=== PATIENT | female | born 1980 | race Caucasian/White ===

== ENCOUNTER 2016-09-16 16:00 | Observation (INO) ==
[2016-09-16] MEDS ORDERED: Ipratropium/Albuterol Neb 3 ML IH ONE (16:25)
--- NOTE | 2016-09-16 16:28 | Emergency Department Note ---
Disposition Clinical Impression: Influenza, Pneumonia Disposition: Admitted As Inpatient Condition: Fair Referrals: Brittni Hodges, SET UP INSPECTOR [Primary Care Provider] - Forms: ED Satisfaction Letter Time of Disposition: 19:04 ([facility]) URI/Sore Throat HPI - General Chief Complaint: ED Upper Respiratory Infection Stated Complaint: COUGH, FEVER, CHILLS, SHAKINESS Time Seen by Provider: 09/16/16 16:01 Source: EMS Mode of arrival: ambulatory Limitations: no limitations Nursing Notes Reviewed: Yes Vital Signs Reviewed: Yes - History of Present Illness HPI Narrative: 6-year-old female has single episode at home she was walking about her house when she went to the back mass which came back out towards the front of the house he had a collapsed she has been short of breath; cough congestion fever chills she denies any neck pain neck stiffness denies any numbness tingling weakness or loss sensation legs denies loss of bowel or bladder control denies any burning or urgency stain patient states that she just does not feel well she thinks she may have the flu Pt Subjective Complaint: fever, cough, flu symptoms, nasal congestion Onset (ago): day(s) (3-4) Duration: constant, gradually worsening Severity: moderate Severity scale (1-10): 5 Improves with: nothing Worsens with: exertion If sputum, description: yellow Context: sick contacts Associated symptoms: Reports: fever, chills, myalgias, diaphoresis, headache, nasal congestion, cough, chest pain, shortness of breath. Denies: voice changes , rhinorrhea, sore throat, stiff neck, abdominal pain, nausea, vomiting, diarrhea, dysuria, rash, ear pain Treatments prior to arrival: acetaminophen, ibuprofen - Related Data Home Medications Medication Instructions Recorded Confirmed Albuterol Sulfate [Albuterol 2 puff IH Q4-6H PRN 07/23/15 06/23/16 Inhaler] Budesonide/Formoterol 160/4.5 2 puff IH BID 07/23/15 06/23/16 [Symbicort 160/4.5] Levothyroxine [Synthroid] 100 mcg PO DAILY 07/23/15 06/23/16 Omeprazole [PriLOSEC] 40 mg PO DAILY 07/23/15 06/23/16 Topiramate [Topamax] 50 mg PO DAILY 07/23/15 06/23/16 Venlafaxine XR (24 HR) [Effexor XR] 225 mg PO DAILY 07/23/15 06/23/16 Cetirizine HCl [All Day Allergy] 10 mg PO DAILY PRN 06/23/16 06/23/16 FLUoxetine HCl [PROzac] 20 mg PO DAILY 06/23/16 06/23/16 Hydrochlorothiazide 25 mg PO DAILY 06/23/16 06/23/16 LORazepam [Ativan] 0.5 mg PO BID PRN 06/23/16 06/23/16 Lisinopril [Zestril] 20 mg PO DAILY 06/23/16 06/23/16 Metoprolol XL (24 HR) Succ [Toprol 25 mg PO DAILY 06/23/16 06/23/16 XL] Previous Rx's Medication Instructions Recorded Ibuprofen [Motrin] 800 mg PO TID #15 tablet 07/23/15 Allergies Allergy/AdvReac Type Severity Reaction Status Date / Time diphenhydramine Allergy Hives Verified 06/23/16 08:40 [From Benadryl] mold Allergy Hives Verified 06/23/16 08:40 All systems ED: reviewed and negative except as stated. Constitutional: Reports: fever, chills, weakness Eyes: Denies: eye pain ENT ED: Reports: throat pain, congestion Cardiovascular: Reports: chest pain, dyspnea on exertion. Denies: palpitations Respiratory: Reports: cough, dyspnea, wheezes, sputum production Gastrointestinal: Denies: abdominal pain, nausea, vomiting Genitourinary: Denies: urgency, dysuria, frequency Musculoskeletal: Denies: back pain, neck pain Integumentary: Denies: rash, abrasion Neurological: Denies: headache Psychiatric: Denies: anxiety Endocrine: Denies: fatigue Hematological/Lymphatic: Denies: easy bleeding Allergic/Immunologic: Denies: facial swelling URI PMH - Past Medical History Medical history: Reports: diabetes, hyperlipidemia, hypertension, thyroid disease Surgical history: Reports: cholecystectomy Psychiatric history: Reports: anxiety, depression PRESS SET UP history: Reports: no PRESS SET UP history - Social History Smoking Status: Unknown if ever smoked Alcohol use: Reports: none Drug use: Reports: none Physical Exam - General Limitations: no limitations General appearance: alert, in no apparent distress, anxious, obese - Head Head exam: atraumatic, normocephalic, normal inspection - Eye Eye exam: Present: normal appearance, PERRL, EOMI - ENT ENT exam: normal exam, normal oropharynx, mucous membranes moist, normal external ear exam - Neck Neck exam: Present: normal inspection, full ROM, trachea midline - Chest Chest inspection: Present: normal inspection, symmetric chest wall rise - Respiratory Respiratory exam: Present: wheezes, accessory muscle use, prolonged expiratory phase, other (desat with activity) - Cardiovascular Cardiovascular exam: Present: regular rate, normal rhythm, normal heart sounds - Abdominal Exam Abdominal exam: Present: soft, Non-Tender, normal bowel sounds. Absent: mass, pulsatile mass - Extremities Exam Extremities exam: Present: normal inspection, full ROM, normal capillary refill. Absent: tenderness, joint swelling - Expanded Lower Extremity Exam Gait: observed and normal - Back Exam Back exam: Present: normal inspection, full ROM. Absent: muscle spasm - Neurological Exam Neurological exam: Present: alert, oriented X3, CN II-XII intact - Psychiatric Psychiatric exam: Present: normal affect, normal mood - Skin Skin exam: Present: warm, dry, intact, normal color Course Course Narrative: Patient seen and examined labs including influenza chest x-ray were obtained with possibly influenza we started her on Tamiflu given IV after reviewing the chest x-ray with the radiologist says congestive heart failure appears to be more consistent with pneumonia my concern would be that of ours patient is having some desaturation we get her some Lasix she will be admitted transferred to [facility] for further management Vital Signs Temperature 103.9 F H 09/16/16 16:01 Pulse Rate 113 09/16/16 16:01 Respiratory Rate 30 09/16/16 16:01 Blood Pressure 144/74 09/16/16 16:01 O2 Sat by Pulse Oximetry 90 L 09/16/16 16:01 Temperature 100.7 F H 09/16/16 17:04 Pulse Rate 103 09/16/16 18:27 Respiratory Rate 20 09/16/16 18:27 Blood Pressure 159/73 09/16/16 18:27 O2 Sat by Pulse Oximetry 93 L 09/16/16 18:27 Oxygen Delivery Oxygen Delivery Nasal Cannula Upper Respiratory Infection - Differential Diagnosis Differential Diagnosis: Likely: upper respiratory infection, bronchitis, influenza, pneumonia - Medical Records Medical records reviewed: Yes I reviewed the patient's medical records. - Lab Data Lab results reviewed: Yes I reviewed the patient's lab results. Result diagrams: 09/16/16 18:24 09/16/16 18:24 Lab Results 09/16/16 09/16/16 09/16/16 Range/Units 18:24 18:24 18:24 WBC 5.4 (4.3-11.1) K/mcL RBC 3.68 L (3.82-4.97) M/mcL Hgb 10.9 L (11.5-15.4) g/dL Hct 33.1 L (35.3-44.9) % MCV 89.9 (83.0-100.0) fL MCH 29.6 (28.0-33.3) pg MCHC 32.9 (31.6-35.5) g/dL RDW 16.5 H (11.5-14.5) % Plt Count 139 L (140-400) K/mcL MPV 10.7 (9.4-12.4) fL Immature Gran % 0.6 (0-4) % Seg Neutrophils % 85.6 % Lymphocytes % 9.7 % Monocytes % 3.5 % Eosinophils % 0.4 % Basophils % 0.2 % Neutrophils # 4.6 (1.6-8.9) K/mcL Lymphocytes # 0.5 L (0.6-4.6) K/mcL Monocytes # 0.2 (0.0-1.3) K/mcL Eosinophils # 0.0 (0.0-0.6) K/mcL Basophils # 0.0 (0.0-0.2) K/mcL PT 13.2 H (9.4-12.1) Seconds INR 1.2 APTT 27.1 (26.0-36.0) Seconds Sodium 140 (136-145) mEq/L Potassium 3.8 (3.5-4.5) mEq/L Chloride 105 (98-109) mEq/L Carbon Dioxide 20 (19-29) mEq/L BUN 11 (7-20) mg/dL Creatinine 1.15 H (0.57-1.11) mg/dL Est GFR ( Amer) > 60 (> 60) Est GFR (Non-Af Amer) 53 L (> 60) BUN/Creatinine Ratio 10 (6-26) Glucose 258 H (70-99) mg/dL Calculated Osmolality 298 (280-300) Calcium 8.0 L (8.6-10.8) mg/dL B-Natriuretic Peptide (0-100) pg/mL 09/16/16 Range/Units 18:24 WBC (4.3-11.1) K/mcL RBC (3.82-4.97) M/mcL Hgb (11.5-15.4) g/dL Hct (35.3-44.9) % MCV (83.0-100.0) fL MCH (28.0-33.3) pg MCHC (31.6-35.5) g/dL RDW (11.5-14.5) % Plt Count (140-400) K/mcL MPV (9.4-12.4) fL Immature Gran % (0-4) % Seg Neutrophils % % Lymphocytes % % Monocytes % % Eosinophils % % Basophils % % Neutrophils # (1.6-8.9) K/mcL Lymphocytes # (0.6-4.6) K/mcL Monocytes # (0.0-1.3) K/mcL Eosinophils # (0.0-0.6) K/mcL Basophils # (0.0-0.2) K/mcL PT (9.4-12.1) Seconds INR APTT (26.0-36.0) Seconds Sodium (136-145) mEq/L Potassium (3.5-4.5) mEq/L Chloride (98-109) mEq/L Carbon Dioxide (19-29) mEq/L BUN (7-20) mg/dL Creatinine (0.57-1.11) mg/dL Est GFR ( Amer) (> 60) Est GFR (Non-Af Amer) (> 60) BUN/Creatinine Ratio (6-26) Glucose (70-99) mg/dL Calculated Osmolality (280-300) Calcium (8.6-10.8) mg/dL B-Natriuretic Peptide 33 (0-100) pg/mL - Radiology Data Radiology results reviewed: Yes I reviewed the patient's radiology results. ITS Impressions Chest X-Ray 09/16/16 16:25 IMPRESSION: Mild pulmonary vascular congestion. D/ / Rogers Blank MD / Rogers Blank MD Interpreting Provider: Rogers Blank MD Critical Care Time Critical Care Time: No
[2016-09-16] MEDS ORDERED: Azithromycin 500 MG in D5% in Water 250 ML IVPB ONE (17:23)
[2016-09-16] MEDS ORDERED: CefTRIAXone 1,000 MG in D5% in Water (Mini-Bag+) 100 ML IVPB ONE (17:23)
[2016-09-16] MEDS ORDERED: 0.9 % Sodium Chloride 1,000 ML IVC ONE (17:23)
[2016-09-16 18:34] LABS: Basophils % 0.2 %; Eosinophils % 0.4 %; Hematocrit 33.1 % (35.3-44.9); Hemoglobin 10.9 g/dL (11.5-15.4); Immature Granulocytes % 0.6 % (0-4); Lymphocytes # 0.5 K/mcL (0.6-4.6); Lymphocytes % 9.7 %; Mean Corpuscular HGB Conc 32.9 g/dL (31.6-35.5); Mean Corpuscular Hemoglobin 29.6 pg (28.0-33.3); Mean Corpuscular Volume 89.9 fL (83.0-100.0); Mean Platelet Volume 10.7 fL (9.4-12.4); Monocytes # 0.2 K/mcL (0.0-1.3); Monocytes % 3.5 %; Neutrophils # 4.6 K/mcL (1.6-8.9); Platelet Count 139 K/mcL (140-400); Red Blood Count 3.68 M/mcL (3.82-4.97); Red Cell Distribution Width 16.5 % (11.5-14.5); Segmented Neutrophils % 85.6 %
[2016-09-16] MEDS ORDERED: Bumetanide 1 MG/4 ML VIAL IVP ONE (18:39)
[2016-09-16 18:41] LABS: INR 1.2; Prothrombin Time 13.2 Seconds (9.4-12.1)
[2016-09-16 18:44] LABS: Activated Partial Thrombo Time 27.1 Seconds (26.0-36.0)
[2016-09-16 18:48] LABS: BUN/Creatinine Ratio 10 (6-26); Blood Urea Nitrogen 11 mg/dL (7-20); Carbon Dioxide 20 mEq/L (19-29); Chloride 105 mEq/L (98-109); Glucose 258 mg/dL (70-99); Osmolality,Calculated 298 (280-300); Potassium 3.8 mEq/L (3.5-4.5); Sodium 140 mEq/L (136-145); eGFR For African Americans > 60 (> 60); eGFR For Non-African Americans 53 (> 60)
[2016-09-16] MEDS ORDERED: Ondansetron 4 MG/2 ML VIAL IVP PRN (21:56)
[2016-09-16] MEDS ORDERED: Loratadine 10 MG TABLET PO PRN (21:56)
[2016-09-16] MEDS ORDERED: CefTRIAXone 1,000 MG in D5% in Water (Mini-Bag+) 100 ML IVPB SCH (21:56)
[2016-09-16] MEDS ORDERED: Azithromycin 500 MG in D5% in Water 250 ML IVPB SCH (21:56)
[2016-09-16] MEDS ORDERED: Acetaminophen 325 MG TABLET PO PRN (21:56)
[2016-09-16] MEDS ORDERED: *HR* LORazepam 0.5 MG TABLET PO PRN (21:56)
[2016-09-16] MEDS ORDERED: Naloxone 0.4 MG/ML INJ IVP PRN (21:56)
[2016-09-16] MEDS ORDERED: Ibuprofen 400 MG TABLET PO PRN (21:56)
[2016-09-16] MEDS ORDERED: 0.9 % Sodium Chloride 1,000 ML IVC SCH (21:56)
[2016-09-17] MEDS ORDERED: Dextrose Gel 15 GM PO PRN ×2 (00:12)
[2016-09-17] MEDS ORDERED: *HR* Dextrose 50 % in Water (Syg) 50 ML SYRINGE IVP PRN (00:12)
[2016-09-17] MEDS ORDERED: D5% in Water 1,000 ML IV PRN (00:12)
[2016-09-17] MEDS: Ibuprofen 800 MG TABLET PO SCH ×2 (01:15→10:06)
[2016-09-17 06:44] LABS: Hematocrit 30.5 % (35.3-44.9); Immature Granulocytes % 0.6 % (0-4); Lymphocytes # 0.4 K/mcL (0.6-4.6); Lymphocytes % 12.3 %; Mean Corpuscular HGB Conc 32.8 g/dL (31.6-35.5); Mean Corpuscular Hemoglobin 29.3 pg (28.0-33.3); Mean Corpuscular Volume 89.4 fL (83.0-100.0); Mean Platelet Volume 10.4 fL (9.4-12.4); Monocytes # 0.1 K/mcL (0.0-1.3); Monocytes % 4.3 %; Neutrophils # 2.7 K/mcL (1.6-8.9); Platelet Count 123 K/mcL (140-400); Red Blood Count 3.41 M/mcL (3.82-4.97); Red Cell Distribution Width 16.5 % (11.5-14.5); Segmented Neutrophils % 82.8 %
[2016-09-17 06:50] LABS: INR 1.2; Prothrombin Time 12.6 Seconds (9.4-12.1)
[2016-09-17 06:53] LABS: Activated Partial Thrombo Time 25.5 Seconds (26.0-36.0)
[2016-09-17 07:01] LABS: Calcium 7.9 mg/dL (8.6-10.8); Potassium 3.9 mEq/L (3.5-4.5)
[2016-09-17] MEDS ORDERED: Metoprolol XL (24 HR) Succ 25 MG TAB.ER.24H PO SCH (09:00)
[2016-09-17] MEDS ORDERED: Topiramate 25 MG TABLET PO SCH (09:00)
[2016-09-17] MEDS ORDERED: Venlafaxine XR (24 HR) 75 MG CAP.ER.24H PO SCH (09:00)
[2016-09-17] MEDS ORDERED: Venlafaxine XR (24 HR) 37.5 MG CAP.ER.24H PO SCH (09:00)
[2016-09-17] MEDS ORDERED: Lisinopril 20 MG TABLET PO SCH (09:00)
[2016-09-17] MEDS ORDERED: FLUoxetine 20 MG CAPSULE PO SCH (09:00)
[2016-09-17] MEDS ORDERED: Budesonide/Formoterol 160/4.5 MDI IH SCH (10:00)
[2016-09-17] MEDS: Insulin LISPRO 300 UNITS/3 ML VIAL SQ SCH ×2 (10:05→12:48)
[2016-09-17 11:46] VITALS: BP 140/52
--- NOTE | 2016-09-17 12:06 | Internal Med History&Physical ---
Date of Encounter: 09/17/16 Time of Encounter: 11:30 Assessment and Plan (1) Influenza Current visit: Yes Status: Acute She has been started on Tamiflu. (2) Syncope Current visit: Yes Status: Acute Orthostatic vital signs will be checked prior to discharge. Qualifiers: Syncope type: unspecified Qualified Code(s): R55 - Syncope and collapse (3) Hypertension Current visit: Yes Status: Chronic Continue hydrochlorothiazide, Zestril, and metoprolol XL. Qualifiers: Hypertension type: essential hypertension Qualified Code(s): I10 - Essential (primary) hypertension (4) CKD (chronic kidney disease) stage 3, GFR 30-59 ml/min Current visit: Yes Status: Chronic (5) DM2 (diabetes mellitus, type 2) Current visit: Yes Status: Acute Hemoglobin A1c was acceptable at 6.0% on 06/22/2016. Accu-Cheks will be done with SSI Qualifiers: Diabetes mellitus complication status: with kidney complications Diabetes mellitus complication detail: with chronic kidney disease Diabetes mellitus rn long term care insulin use: without rn long term care use Chronic kidney disease stage: stage 3 (moderate) Qualified Code(s): E11.22 - Type 2 diabetes mellitus with diabetic chronic kidney disease; N18.3 - Chronic kidney disease, stage 3 ( moderate) (6) Anemia Current visit: Yes Status: Acute Qualifiers: Anemia type: unspecified type Qualified Code(s): D64.9 - Anemia, unspecified Internal Medicine - H&P: HPI Chief complaint: Cough and fever Admitted From: Home Plans for Post Hospital Care: Home History of present illness: Ms. Brand is a 36 year old female who came to emergency room stating she had onset of fatigue and cough approximately 1 week ago. It worsened in the 3 days preceding hospitalization. She had fevers chills loss of appetite and nausea but no vomiting or diarrhea. She reports she had a very brief syncopal episode lasting only a few seconds while ambulating in her house. She fell to the floor without injury. She regained consciousness and called 911. She was evaluated in emergency room and found to have influenza A and was admitted to [facility] for ongoing care needs. She states she feels improved now and has ambulated in the hospital room without any further syncopal or near syncopal episodes. Her respiratory history is significant for being a lifelong nonsmoker. She has a diagnosis of asthma but no other chronic lung disease. She was told in the past she had " air trapping". Past Med Surg Social Fam HX - Past Medical History Medical history: asthma, diabetes, hypertension, thyroid disease Psychiatric history: anxiety, depression - Past Surgical History Surgical History: cholecystectomy - Social History Smoking Status: Never smoker Smokeless Tobacco Status: No Alcohol use: none Drug use: none - Family History Mother Adopted: No Family Member Ethnicity: Non- Living Status: Still Living Hx Family Cardiac Disorders: Yes (hypertension) Hx Family Respiratory Disorders: No Hx Family Cancer: No Hx Family GI Disorders: No Hx Family Endocrine Disorder: No Hx Family Neuromuscular Disorders: No Hx Family Neurologic Disorders: Yes (Epilepsy) Hx Family HEENT Disorders: No Hx Family Autoimmune Disorders: No Father Age: 60 Family Member Ethnicity: Non- Living Status: Still Living Hx Family Cardiac Disorders: No Hx Family Respiratory Disorders: No Hx Family Cancer: No Hx Family GI Disorders: No Hx Family Endocrine Disorder: No Hx Family Neuromuscular Disorders: No Hx Family Neurologic Disorders: No Hx Family HEENT Disorders: No Hx Family Autoimmune Disorders: No Internal Medicine - H&P: Meds Albuterol Sulfate [Albuterol Inhaler] 2 puff IH Q4-6H PRN 07/23/15 [History] Budesonide/Formoterol 160/4.5 [Symbicort 160/4.5] 2 puff IH BID 07/23/15 [ History] Ibuprofen [Motrin] 800 mg PO TID #15 tablet 07/23/15 [Rx] Levothyroxine [Synthroid] 100 mcg PO DAILY 07/23/15 [History] Omeprazole [PriLOSEC] 40 mg PO DAILY 07/23/15 [History] Topiramate [Topamax] 50 mg PO DAILY 07/23/15 [History] Venlafaxine XR (24 HR) [Effexor XR] 225 mg PO DAILY 07/23/15 [History] Cetirizine HCl [All Day Allergy] 10 mg PO DAILY PRN 06/23/16 [History] FLUoxetine HCl [PROzac] 20 mg PO DAILY 06/23/16 [History] Hydrochlorothiazide 25 mg PO DAILY 06/23/16 [History] LORazepam [Ativan] 0.5 mg PO BID PRN 06/23/16 [History] Lisinopril [Zestril] 20 mg PO DAILY 06/23/16 [History] Metoprolol XL (24 HR) Succ [Toprol XL] 25 mg PO DAILY 06/23/16 [History] Allergies diphenhydramine [From Benadryl] Allergy (Verified 06/23/16 08:40) Hives mold Allergy (Verified 06/23/16 08:40) Hives clindamycin Adverse Reaction (Severe, Verified 09/17/16 02:47) Redness of Skin Red Man Syndrome per patient vancomycin Adverse Reaction (Severe, Verified 09/17/16 02:47) Redness of Skin Red Man Syndrom per patient All Systems PM: A 10-system review of systems was performed and is negative for pertinent findings except as documented above in the HPI. Review of systems: Gen.: Her weight has been stable at approximately 175 kg since the May 2014 hospitalization Cardiovascular: She has history of hypertension but denies VA heart failure DVT or pulmonary embolus. She reports an EST done in 2012 which was negative. Respiratory: As per history of present illness GI: She has had cholecystectomy. She has NAFLD but denies other disorders of her liver or exocrine pancreas : She has CKD stage III but does not follow with a gravity meter observer Neurologic: She denies large distribution strokes or seizures. Endocrine: She has been diagnosed with DM 2 but reports it has been diet- controlled. Hemoglobin A1c done 06/22/2016 was acceptable at 6.0%. She has hypothyroidism. She has hyperlipidemia but is not receiving treatment. Lipid profile done June 2016 showed triglycerides 443 and cholesterol 259. Hematology/oncology: She denies blood disorders or cancers. Her emergency room lab work showed mild anemia. Psychiatric: She has anxiety and depression but denies others mental health disorders Musk skeletal: She has mild DJD but no known gout or osteoporosis or bone joint or muscle disorders. - Constitutional Vitals: Temp Pulse Resp BP Pulse Ox 97.7 F 81 38 140/52 93 L 09/17/16 11:42 09/17/16 11:42 09/17/16 11:42 09/17/16 11:42 09/17/16 11:42 Exam: Gen.: She is a well-developed obese female who appears in no severe distress at present time HEENT: Head is atraumatic and normocephalic. Eyes: EOMI. There is no scleral icterus. Mouth: Mucosa is moist. Neck: Supple and nontender. There is no thyromegaly or adenopathy noted. Heart: Regular without murmurs gallops or ectopics Lungs: No wheezes crackles are heard Abdomen: Soft and nontender. No masses or guarding are noted. Extremities: There is no cyanosis edema or clubbing noted. Dorsalis pedis and posttibial pulses are trace palpable bilaterally. Her feet are warm to touch. Neurologic: Mental status: She is talkative and a good historian. Cranial nerves: Smile is symmetric. Forehead wrinkles bilaterally. Tongue protrudes midline. EOMI. Motor: There is no pronator drift. Cerebellar: Finger to nose intact bilaterally. Skin: Warm and dry Internal Med - H&P Results - Labs CBC & Chem 7: 09/17/16 06:21 09/17/16 06:21 Labs: Short CBC 09/17/16 Range/Units 06:21 WBC 3.3 L (4.3-11.1) K/mcL Hgb 10.0 L (11.5-15.4) g/dL Hct 30.5 L (35.3-44.9) % Plt Count 123 L (140-400) K/mcL Neutrophils # 2.7 (1.6-8.9) K/mcL BMP 09/17/16 06:21 Sodium 139 Potassium 3.9 Chloride 103 Carbon Dioxide 21 BUN 19 Creatinine 1.35 H Glucose 458 H Calcium 7.9 L
--- NOTE | 2016-09-17 12:20 | Discharge Summary ---
Date of Encounter: 09/17/16 Time of Encounter: 11:30 - Discharge Diagnosis (1) Influenza Priority: Primary Status: Acute (2) Syncope Priority: Secondary Status: Acute Qualifiers: Syncope type: unspecified Qualified Code(s): R55 - Syncope and collapse (3) Hypertension Priority: Secondary Status: Chronic Qualifiers: Hypertension type: essential hypertension Qualified Code(s): I10 - Essential (primary) hypertension (4) CKD (chronic kidney disease) stage 3, GFR 30-59 ml/min Priority: Secondary Status: Chronic (5) DM2 (diabetes mellitus, type 2) Priority: Secondary Status: Acute Qualifiers: Diabetes mellitus complication status: with kidney complications Diabetes mellitus complication detail: with chronic kidney disease Diabetes mellitus long chain beamer insulin use: without long chain beamer use Chronic kidney disease stage: stage 3 (moderate) Qualified Code(s): E11.22 - Type 2 diabetes mellitus with diabetic chronic kidney disease; N18.3 - Chronic kidney disease, stage 3 ( moderate) (6) Anemia Priority: Secondary Status: Acute Qualifiers: Anemia type: unspecified type Qualified Code(s): D64.9 - Anemia, unspecified - Discharge Medications Prescriptions: Oseltamivir [Tamiflu] 75 mg PO BID #8 capsule Home Medications: Albuterol Sulfate [Albuterol Inhaler] 2 puff IH Q4-6H PRN 07/23/15 [History] Budesonide/Formoterol 160/4.5 [Symbicort 160/4.5] 2 puff IH BID 07/23/15 [ History] Levothyroxine [Synthroid] 100 mcg PO DAILY 07/23/15 [History] Omeprazole [PriLOSEC] 40 mg PO DAILY 07/23/15 [History] Topiramate [Topamax] 50 mg PO DAILY 07/23/15 [History] Venlafaxine XR (24 HR) [Effexor Xr] 225 mg PO DAILY 07/23/15 [History] Cetirizine HCl [All Day Allergy] 10 mg PO DAILY PRN 06/23/16 [History] FLUoxetine HCl [Prozac] 20 mg PO DAILY 06/23/16 [History] Hydrochlorothiazide 25 mg PO DAILY 06/23/16 [History] LORazepam [Ativan] 0.5 mg PO BID PRN 06/23/16 [History] Lisinopril [Zestril] 20 mg PO DAILY 06/23/16 [History] Metoprolol XL (24 HR) Succ [Toprol Xl] 25 mg PO DAILY 06/23/16 [History] Oseltamivir [Tamiflu] 75 mg PO BID #8 capsule 09/17/16 [Rx] Allergies/Adverse Reactions: Allergies diphenhydramine [From Benadryl] Allergy (Verified 06/23/16 08:40) Hives mold Allergy (Verified 06/23/16 08:40) Hives clindamycin Adverse Reaction (Severe, Verified 09/17/16 02:47) Redness of Skin Red Man Syndrome per patient vancomycin Adverse Reaction (Severe, Verified 09/17/16 02:47) Redness of Skin Red Man Syndrom per patient Date of admission: 09/16/16 20:10 Primary care physician: Brittni Hodges CNP - Patient Status Disposition: Home, Self-Care Condition: Fair Overall status at discharge: patient is progressing back to baseline - Discharge Instructions Follow Up With: Brittni Hodges CNP [Primary Care Provider] - 1 week - Diet and Activity Activity: resume usual activities as tolerated Hospital course: Ms. Brand is a 36 year old female who came to emergency room stating she had onset of fatigue and cough approximately 1 week ago. It worsened in the 3 days preceding hospitalization. She had fevers chills loss of appetite and nausea but no vomiting or diarrhea. She reports she had a very brief syncopal episode lasting only a few seconds while ambulating in her house. She fell to the floor without injury. She regained consciousness and called 911. She was evaluated in emergency room and found to have influenza A and was admitted to [facility] for ongoing care needs. Initial orders were written by the emergency room physician. I saw her on September 17 and performed a history physical and discharge. She was started on Tamiflu by the emergency room physician. IV fluids were given. She had no further syncopal or near syncopal episodes during her hospital stay. Orthostatic vital signs will be checked prior to discharge. Her hemoglobin decreased with IV fluid administration to 10.0 on September 17. I will discontinue ibuprofen and Brittni Hodges CNP can follow-up on this office visit. Her temperature to normal range after admission. She felt significantly improved and stable for discharge home when I saw her on September 17. She will follow with her PCP Brittni Hodges CNP within 1 week. . - Time Spent with Patient Total time spent providing and/or coordinating discharge services: - Constitutional Vitals: Temp Pulse Resp BP Pulse Ox 97.7 F 81 38 140/52 93 L 09/17/16 11:42 09/17/16 11:42 09/17/16 11:42 09/17/16 11:42 09/17/16 11:42
[2016-09-17] MEDS ORDERED: Insulin LISPRO 300 UNITS/3 ML VIAL SQ SCH (21:00)
== END 2016-09-17 15:56 | disposition home or self-care (01) ==
LOC: EMEROOPIK 16:00 → INPPIK 16:00
PROVIDERS: ADMIT Internal Medicine; ATTEND Internal Medicine

== ENCOUNTER 2017-05-14 00:12 | Observation (INO) ==
[2017-05-14] MEDS ORDERED: Ondansetron 4 MG/2 ML VIAL IVP ONE (00:23)
--- NOTE | 2017-05-14 00:27 | Emergency Department Note ---
Disposition Clinical Impression: Dehydration, Hypokalemia Syncope Qualifiers: Syncope type: unspecified Qualified Code(s): R55 - Syncope and collapse Disposition: Admitted As Inpatient Condition: Good Referrals: Birttni Hodges CNP [Primary Care Provider] - Forms: ED Satisfaction Letter Time of Disposition: 02:10 Syncope HPI - General Chief Complaint: ED Syncope Stated Complaint: possible syncopal episode Time Seen by Provider: 05/14/17 00:20 Source: patient Mode of arrival: EMS Limitations: no limitations Nursing Notes Reviewed: Yes Vital Signs Reviewed: Yes - History of Present Illness HPI Narrative: 37-year-old female transported by EMS after 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 She states she was in the bathroom using the toilet. She went to stand up off the toilet and she states that she got lightheaded, and most passed out. She states she believes she must a sat back down and she did not fall and hit her head. She was sitting on the toilet when EMS got there, she was diaphoretic and clammy but was awake and alert and talking to them. No chest pain or shortness of breath. No abdominal pain. She states she has been sick for 3 days with vomiting and diarrhea. She states she vomited 3 times a day. She has had for 5 episodes of diarrhea each day. No blood or mucus. She states she had fever 101 yesterday, none today. 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 Duration: second(s) Prodromal Symptoms: lightheaded Witnessed: no Context: at rest Injuries Sustained Associated with Event: none Current Symptoms: lightheaded, nausea History: none Treatments prior to arrival: none Associated trauma secondary to event: No - Related Data Home Medications Medication Instructions Recorded Confirmed Albuterol Sulfate [Albuterol 2 puff IH Q4-6H PRN 07/23/15 05/14/17 Inhaler] Budesonide/Formoterol 160/4.5 2 puff IH BID 07/23/15 05/14/17 [Symbicort 160/4.5] Levothyroxine [Synthroid] 100 mcg PO DAILY 07/23/15 05/14/17 Omeprazole [PriLOSEC] 40 mg PO DAILY 07/23/15 05/14/17 Topiramate [Topamax] 50 mg PO DAILY 07/23/15 05/14/17 Venlafaxine XR (24 HR) [Effexor Xr] 225 mg PO DAILY 07/23/15 05/14/17 FLUoxetine HCl [Prozac] 20 mg PO DAILY 06/23/16 05/14/17 LORazepam [Ativan] 0.5 mg PO BID PRN 06/23/16 05/14/17 Lisinopril [Zestril] 20 mg PO DAILY 06/23/16 06/23/16 Allergies Allergy/AdvReac Type Severity Reaction Status Date / Time diphenhydramine Allergy Hives Verified 06/23/16 08:40 [From Benadryl] mold Allergy Hives Verified 06/23/16 08:40 clindamycin AdvReac Severe Redness of Verified 09/17/16 02:47 Skin vancomycin AdvReac Severe Redness of Verified 09/17/16 02:47 Skin All systems ED: reviewed and negative except as stated. Constitutional: Reports: fever. Denies: chills Eyes: Denies: eye discharge ENT ED: Denies: ear pain, throat pain Cardiovascular: Denies: chest pain, palpitations Respiratory: Denies: cough, dyspnea, wheezes Gastrointestinal: Reports: nausea, vomiting, diarrhea. Denies: abdominal pain Genitourinary: Denies: urgency, dysuria, frequency Musculoskeletal: Denies: back pain, neck pain Neurological: Reports: headache, weakness. 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 Absent: scleral icterus, conjunctival injection - ENT ENT exam: normal oropharynx, mucous membranes moist, TM's normal bilaterally - Neck Neck exam: Present: normal inspection, full ROM, trachea midline. Absent: tenderness, meningismus, lymphadenopathy, thyromegaly - Respiratory Respiratory exam: Present: normal lung sounds bilaterally. Absent: respiratory distress, wheezes - Cardiovascular Cardiovascular exam: Present: regular rate, normal rhythm, normal heart sounds - Abdominal Exam Abdominal exam: Present: soft, Non-Tender, normal bowel sounds. Absent: organomegaly, mass - Extremities Exam Extremities exam: Present: normal inspection, full ROM, normal capillary refill. Absent: tenderness, pedal edema, calf tenderness - Neurological Exam Neurological exam: Present: alert, oriented X3, CN II-XII intact, reflexes normal. Absent: motor sensory deficit - Psychiatric Psychiatric exam: Present: normal affect, normal mood - Skin Skin exam: Present: warm, dry, intact, normal color. Absent: cyanosis, diaphoresis Course Vital Signs Temperature 96.9 F L 05/14/17 00:17 Pulse Rate 98 05/14/17 00:17 Respiratory Rate 20 05/14/17 00:17 Blood Pressure 91/45 05/14/17 00:17 O2 Sat by Pulse Oximetry 99 05/14/17 00:17 Temperature 96.9 F L 05/14/17 00:17 Pulse Rate 89 05/14/17 02:34 Respiratory Rate 16 05/14/17 02:34 Blood Pressure 107/61 05/14/17 02:34 O2 Sat by Pulse Oximetry 100 05/14/17 02:34 Oxygen Delivery Oxygen Delivery Room Air Syncope - MDM Narrative Medical decision making narrative: Differential includes but is not limited to orthostatic hypotension, arrhythmia , dehydration, anemia, vasovagal syncope, seizure She has significant dehydration with an elevated BUN/creatinine was significant hypokalemia probably from the vomiting and diarrhea. Her hypokalemia is significant enough that she has some flattening of her T waves compared to her previous EKG. She will require observation admission for hydration and potassium supplementation. Discussed the case with the patient and she is agreeable. I talked with the hospitalist, Dr. Kessler, and he is agreeable with observation. - Lab Data Lab results reviewed: Yes I reviewed the patient's lab results. Result diagrams: 05/14/17 00:55 05/14/17 00:55 Lab Results 05/14/17 05/14/17 05/14/17 Range/Units 00:55 00:55 00:55 WBC 3.2 L (4.3-11.1) K/mcL RBC 4.30 (3.82-4.97) M/mcL Hgb 12.1 (11.5-15.4) g/dL Hct 36.3 (35.3-44.9) % MCV 84.4 (83.0-100.0) fL MCH 28.1 (28.0-33.3) pg MCHC 33.3 (31.6-35.5) g/dL RDW 17.3 H (11.5-14.5) % Plt Count 91 L (140-400) K/mcL MPV 12.0 (9.4-12.4) fL Immature Gran % 0.3 (0-4) % Seg Neutrophils % 65.4 % Lymphocytes % 23.1 % Monocytes % 10.0 % Eosinophils % 0.9 % Basophils % 0.3 % Neutrophils # 2.1 (1.6-8.9) K/mcL Lymphocytes # 0.7 (0.6-4.6) K/mcL Monocytes # 0.3 (0.0-1.3) K/mcL Eosinophils # 0.0 (0.0-0.6) K/mcL Basophils # 0.0 (0.0-0.2) K/mcL Platelet Estimate Slight Decrease L (Normal) Large Platelets Present A (Not Present) Sodium 137 (136-145) mEq/L Potassium 2.7 L (3.5-4.5) mEq/L Chloride 101 (98-109) mEq/L Carbon Dioxide 21 (19-29) mEq/L BUN 27 H (7-20) mg/dL Creatinine 2.23 H (0.57-1.11) mg/dL Est GFR ( Amer) 30 L (> 60) Est GFR (Non-Af Amer) 25 L (> 60) BUN/Creatinine Ratio 12 (6-26) Glucose 233 H (70-99) mg/dL Calculated Osmolality 297 (280-300) Calcium 8.7 (8.6-10.8) mg/dL Total Bilirubin 1.2 (0.2-1.2) mg/dL AST 23 (5-34) Units/L ALT 25 (0-55) Units/L Alkaline Phosphatase 120 (38-126) Units/L Troponin I 0.01 (0-0.03) ng/mL Serum Total Protein 6.0 (6.0-8.3) g/dL Albumin 3.5 (3.5-5.0) g/dL Globulin 2.5 (2.4-3.5) g/dL Albumin/Globulin Ratio 1.4 (1.1-2.2) - Radiology Data Radiology results reviewed: Yes I reviewed the patient's radiology results. Impressions Chest X-Ray 05/14/17 00:23 IMPRESSION: Limited but grossly negative portable chest. D/ / Maco Serrano MD / Maco Serrano MD Interpreting Provider: Maco Serrano MD - EKG Data EKG attestation: Yes I reviewed and interpreted this EKG. EKG results narrative: Sinus rhythm, rate of 90, nonspecific ST-T changes. Rhythm strip shows sinus rhythm with rate of 98, VT interval 147 ms, QRS 102 ms with no other ectopy as interpreted by me. Compared to a tracing dated 06/18/16, slightly more pronounced T-wave flattening. Otherwise no other changes.
[2017-05-14] MEDS: 0.9 % Sodium Chloride 1,000 ML IVC SCH ×10 (00:37→13:39)
[2017-05-14 01:17] LABS: Basophils % 0.3 %; Eosinophils % 0.9 %; Hematocrit 36.3 % (35.3-44.9); Hemoglobin 12.1 g/dL (11.5-15.4); Immature Granulocytes % 0.3 % (0-4); Lymphocytes # 0.7 K/mcL (0.6-4.6); Lymphocytes % 23.1 %; Mean Corpuscular HGB Conc 33.3 g/dL (31.6-35.5); Mean Corpuscular Hemoglobin 28.1 pg (28.0-33.3); Mean Corpuscular Volume 84.4 fL (83.0-100.0); Monocytes # 0.3 K/mcL (0.0-1.3); Neutrophils # 2.1 K/mcL (1.6-8.9); Platelet Count 91 K/mcL (140-400); Red Cell Distribution Width 17.3 % (11.5-14.5); Segmented Neutrophils % 65.4 %
[2017-05-14 01:30] LABS: Large Platelets Present (Not Present); Platelet Estimate Slight Decrease (Normal)
[2017-05-14 01:33] LABS: Albumin 3.5 g/dL (3.5-5.0); Albumin/Globulin Ratio 1.4 (1.1-2.2); Bilirubin,Total 1.2 mg/dL (0.2-1.2); Calcium 8.7 mg/dL (8.6-10.8); Globulin 2.5 g/dL (2.4-3.5); Potassium 2.7 mEq/L (3.5-4.5)
[2017-05-14] MEDS ORDERED: Potassium Chloride Elixir 20 MEQ/15 ML UDC PO ONE (02:11)
[2017-05-14] MEDS ORDERED: *HR* LORazepam 0.5 MG TABLET PO PRN (02:44)
[2017-05-14] MEDS ORDERED: Naloxone 0.4 MG/ML INJ IVP PRN (02:44)
[2017-05-14] MEDS: Acetaminophen 325 MG TABLET PO PRN ×2 (04:11→20:08)
[2017-05-14] MEDS: Topiramate 25 MG TABLET PO SCH (08:24)
[2017-05-14] MEDS: FLUoxetine 20 MG CAPSULE PO SCH (08:25)
[2017-05-14] MEDS: Potassium Chloride Elixir 20 MEQ/15 ML UDC PO SCH ×3 (08:25→20:10)
[2017-05-14] MEDS: Ondansetron ODT 4 MG TAB.RAPDIS SL PRN ×2 (08:33→13:39)
[2017-05-14] MEDS: Venlafaxine XR (24 HR) 37.5 MG CAP.ER.24H PO SCH (09:28)
[2017-05-14] MEDS: Budesonide/Formoterol 160/4.5 MDI IH SCH ×2 (10:47→21:51)
--- NOTE | 2017-05-14 16:27 | Internal Med History&Physical ---
Date of Encounter: 05/14/17 Time of Encounter: 16:00 Assessment and Plan (1) Syncope Current visit: Yes Status: Acute Possible multifactorial origin including Valsalva maneuver with volume depletion and hypokalemia. She is been ordered IV fluids and supplement potassium. Orthostatic vital signs will be checked in a.m. Qualifiers: Syncope type: unspecified Qualified Code(s): R55 - Syncope and collapse (2) Hypokalemia Current visit: Yes Status: Acute She has received supplemental potassium. Labs will be checked in a.m. (3) CKD (chronic kidney disease) stage 3, GFR 30-59 ml/min Current visit: No Status: Chronic Will recheck labs in a.m. (4) Hypertension Current visit: No Status: Chronic Lisinopril has been held. Orthostatic vital signs be checked in a.m. Qualifiers: Hypertension type: essential hypertension Qualified Code(s): I10 - Essential (primary) hypertension Internal Medicine - H&P: HPI Chief complaint: Syncope Admitted From: Home Plans for Post Hospital Care: Home History of present illness: Ms. Brand is a 37 year old female who states she had a syncopal episode in the bathroom at her place of work. She reports she was attempting to stand up from using the toilet and had sensation of syncope developing. There was diaphoresis dyspnea and perception of light flashes. She reports she was unconscious for a few seconds. She regained consciousness and sat back on the toilet and called a coworker. The squad was called and she was brought to emergency room and evaluated and found to have hypokalemia and worse azotemia. She was admitted to [facility] floor for ongoing care needs. She reports she has had vomiting and diarrhea over the last 3 days with slight lightheadedness on arising from a seated position. She reports her children also had some vomiting and diarrhea. Her GI history is pertinent for cholecystectomy and a diagnosis of NAFLD. She denies other disorders of her liver or exocrine pancreas. She states she has had 1 loose stool today but no further vomiting and no abdominal pain. Past Med Surg Social Fam HX - Past Medical History Medical history: asthma, diabetes, hypertension, renal disease, thyroid disease Psychiatric history: anxiety, depression - Past Surgical History Surgical History: cholecystectomy - Social History Smoking Status: Never smoker Smokeless Tobacco Status: No Alcohol use: none Drug use: none - Family History Mother Adopted: No Family Member Ethnicity: Non- Living Status: Still Living Hx Family Cardiac Disorders: Yes (hypertension) Hx Family Respiratory Disorders: No Hx Family Cancer: No Hx Family GI Disorders: No Hx Family Endocrine Disorder: No Hx Family Neuromuscular Disorders: No Hx Family Neurologic Disorders: Yes (Epilepsy) Hx Family HEENT Disorders: No Hx Family Autoimmune Disorders: No Father Family Member Ethnicity: Non- Living Status: Still Living Hx Family Cardiac Disorders: No Hx Family Respiratory Disorders: No Hx Family Cancer: No Hx Family GI Disorders: No Hx Family Endocrine Disorder: No Hx Family Neuromuscular Disorders: No Hx Family Neurologic Disorders: No Hx Family HEENT Disorders: No Hx Family Autoimmune Disorders: No Internal Medicine - H&P: Meds Albuterol Sulfate [Albuterol Inhaler] 2 puff IH Q4-6H PRN 07/23/15 [History] Budesonide/Formoterol 160/4.5 [Symbicort 160/4.5] 2 puff IH BID 07/23/15 [ History] Levothyroxine [Synthroid] 100 mcg PO DAILY 07/23/15 [History] Omeprazole [PriLOSEC] 40 mg PO DAILY 07/23/15 [History] Topiramate [Topamax] 50 mg PO DAILY 07/23/15 [History] Venlafaxine XR (24 HR) [Effexor Xr] 225 mg PO DAILY 07/23/15 [History] FLUoxetine HCl [Prozac] 20 mg PO DAILY 06/23/16 [History] LORazepam [Ativan] 0.5 mg PO BID PRN 06/23/16 [History] Lisinopril [Zestril] 20 mg PO DAILY 06/23/16 [History] 3 Allergy/AdvReac Type Severity Reaction Status Date / Time diphenhydramine Allergy Hives Verified 06/23/16 08:40 [From Benadryl] mold Allergy Hives Verified 06/23/16 08:40 clindamycin AdvReac Severe Redness of Verified 09/17/16 02:47 Skin vancomycin AdvReac Severe Redness of Verified 09/17/16 02:47 Skin All Systems PM: A 10-system review of systems was performed and is negative for pertinent findings except as documented above in the HPI. Review of systems: Review of systems from her September 2016 [facility] hospitalization were reviewed and revised as below. Gen.: Her weight has decreased from 175 kg to 164.2 kg at present Cardiovascular: She has history of hypertension but denies [place] heart failure DVT or pulmonary embolus. She reports an EST done in 2012 which was negative. Respiratory: She is a lifelong nonsmoker. She has a diagnosis of asthma but no other chronic lung disease. She was told in the past she had "air trapping" . She was prescribed oxygen at discharge September 2016 when she was admitted for influenza. She states she quit wearing the oxygen because she did not feel like she needed it. 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 Endocrine: She has been diagnosed with DM 2 but reports it has been diet- controlled. Hemoglobin A1c done 06/22/2016 was acceptable at 6.0%. She has hypothyroidism. She has hyperlipidemia but is not receiving treatment. Lipid profile done June 2016 showed triglycerides 443 and cholesterol 259. Hematology/oncology: She denies blood disorders or cancers. Her emergency room lab work last admission showed mild anemia. Psychiatric: She has anxiety and depression but denies others mental health disorders Musk skeletal: She has mild DJD but no known gout or osteoporosis or bone joint or muscle disorders. - Constitutional Vitals: Temp Pulse Resp BP Pulse Ox 98.7 F 93 18 105/74 100 05/14/17 14:27 05/14/17 14:27 05/14/17 14:27 05/14/17 14:27 05/14/17 14:27 Exam: Gen.: She is a well-developed overweight female sitting in bed who appears in no acute distress at present time. HEENT: Head is atraumatic and normocephalic. Eyes: EOMI. There is no scleral icterus. Mouth: Mucosa is moist. Neck: Supple and nontender. There is no thyromegaly or adenopathy noted. Heart: Regular without murmurs gallops or ectopics Lungs: No wheezes or crackles are heard. Abdomen: Soft and nontender. No masses or guarding are noted. Extremities: There is no cyanosis edema or clubbing noted. Dorsalis pedis posttibial pulses are 1-2 over 2 bilaterally. Neurologic: Mental status: She is talkative and a good historian. Cranial nerves: Smile is symmetric. Forehead wrinkles bilaterally. Tongue protrudes midline. EOMI. Motor: There is no pronator drift. Cerebellar: Finger to nose is intact bilaterally. Skin: Warm and dry Internal Med - H&P Results - Labs CBC & Chem 7: 05/14/17 00:55 05/14/17 00:55
[2017-05-14] MEDS: D5% in 0.45% NACL w KCl 20 MEQ/1,000 ML MLS IVC SCH (16:43)
[2017-05-15 06:18] VITALS: BP 104/73
[2017-05-15] MEDS: D5% in 0.45% NACL w KCl 20 MEQ/1,000 ML MLS IVC SCH (06:20)
[2017-05-15 06:53] LABS: BUN/Creatinine Ratio 17 (6-26); Blood Urea Nitrogen 18 mg/dL (7-20); Calcium 8.6 mg/dL (8.6-10.8); Carbon Dioxide 22 mEq/L (19-29); Chloride 109 mEq/L (98-109); Glucose 135 mg/dL (70-99); Osmolality,Calculated 294 (280-300); Potassium 3.2 mEq/L (3.5-4.5); Sodium 140 mEq/L (136-145); eGFR For African Americans > 60 (> 60); eGFR For Non-African Americans 56 (> 60)
[2017-05-15] MEDS: Venlafaxine XR (24 HR) 37.5 MG CAP.ER.24H PO SCH (08:01)
[2017-05-15] MEDS: Topiramate 25 MG TABLET PO SCH (08:01)
[2017-05-15] MEDS: FLUoxetine 20 MG CAPSULE PO SCH (08:01)
[2017-05-15] MEDS: Potassium Chloride Elixir 20 MEQ/15 ML UDC PO SCH (08:02)
--- NOTE | 2017-05-15 10:16 | Discharge Summary ---
Date of Encounter: 05/15/17 Time of Encounter: 10:10 - Discharge Diagnosis (1) Syncope Priority: Primary Status: Acute Qualifiers: Syncope type: unspecified Qualified Code(s): R55 - Syncope and collapse (2) Hypokalemia Priority: Secondary Status: Acute (3) CKD (chronic kidney disease) stage 3, GFR 30-59 ml/min Priority: Secondary Status: Chronic (4) Hypertension Priority: Secondary Status: Chronic Qualifiers: Hypertension type: essential hypertension Qualified Code(s): I10 - Essential (primary) hypertension (5) Hypomagnesemia Priority: Secondary Status: Acute - Discharge Medications Prescriptions: Magnesium Oxide [Mag-Ox] 400 mg PO BID #6 tablet Potassium Chloride 10 meq PO BIDWM #6 tab.er.prt Home Medications: Albuterol Sulfate [Albuterol Inhaler] 2 puff IH Q4-6H PRN 07/23/15 [History] Budesonide/Formoterol 160/4.5 [Symbicort 160/4.5] 2 puff IH BID 07/23/15 [ History] Levothyroxine [Synthroid] 100 mcg PO DAILY 07/23/15 [History] Omeprazole [PriLOSEC] 40 mg PO DAILY 07/23/15 [History] Topiramate [Topamax] 50 mg PO DAILY 07/23/15 [History] Venlafaxine XR (24 HR) [Effexor Xr] 225 mg PO DAILY 07/23/15 [History] FLUoxetine HCl [Prozac] 20 mg PO DAILY 06/23/16 [History] LORazepam [Ativan] 0.5 mg PO BID PRN 06/23/16 [History] Magnesium Oxide [Mag-Ox] 400 mg PO BID #6 tablet 05/15/17 [Rx] Potassium Chloride 10 meq PO BIDWM #6 tab.er.prt 05/15/17 [Rx] Allergies/Adverse Reactions: 3 Allergy/AdvReac Type Severity Reaction Status Date / Time diphenhydramine Allergy Hives Verified 06/23/16 08:40 [From Benadryl] mold Allergy Hives Verified 06/23/16 08:40 clindamycin AdvReac Severe Redness of Verified 09/17/16 02:47 Skin vancomycin AdvReac Severe Redness of Verified 09/17/16 02:47 Skin Date of admission: 05/14/17 02:40 Primary care physician: Brittni Hodges CNP - Patient Status Disposition: Home, Self-Care Condition: Good Functional capacity at discharge: independent ambulation Overall status at discharge: patient is progressing back to baseline - Discharge Instructions Follow Up With: Brittni Hodges CNP [Primary Care Provider] - 1 week - Diet and Activity Activity: resume usual activities as tolerated Diet: advance to your usual diet Hospital course: Ms. Brand is a 37 year old female who states she had a syncopal episode in the bathroom at her place of work. She reports she was attempting to stand up from using the toilet and had sensation of syncope developing. There was diaphoresis dyspnea and perception of light flashes. She reports she was unconscious for a few seconds. She regained consciousness and sat back on the toilet and called a coworker. The squad was called and she was brought to emergency room and evaluated and found to have hypokalemia and worse azotemia. She was admitted to [facility] for ongoing care needs. Initial orders were written by the emergency room physician. I saw her on May 14 and performed a history and physical. Her antihypertensive medications were held. IV fluids and supplemental potassium were given. She had significant improvement with BUN and creatinine decreasing to 18 and 1.09 respectively by the following day with estimated GFR of 56. Her potassium tanner to 3.2. She will continue with supplemental potassium for 3 additional days at discharge and remain off antihypertensive medications since her blood pressure was well-controlled without them. Orthostatic vital signs showed no change in blood pressure lying to standing. Magnesium returned low at 1.4. She will receive magnesium oxide 400 mg twice a day for 3 days at discharge. On May 15 she felt stable for discharge home. She will follow with her PCP Brittni Hodges CNP within 1 week. - Time Spent with Patient Total time spent providing and/or coordinating discharge services: - Constitutional Vitals: Temp Pulse Resp BP Pulse Ox 97.6 F 105 18 104/73 99 05/15/17 06:11 05/15/17 06:16 05/15/17 06:11 05/15/17 06:16 05/15/17 06:11
[2017-05-15] MEDS: Budesonide/Formoterol 160/4.5 MDI IH SCH (10:33)
--- NOTE | 2017-05-15 12:03 | Electrocardiograph Report ---
[address] [place], [place] [address] Test Date: 2017-05-14 Pat Name: Carmen Brand Department: [id number] Room: [facility] [place] Gender: F Family Practice Md: Meche : 1980 Requested By: Jeb Lau Order Number: [id number] Reading MD: Rob Gomez MD Measurements Intervals [place] Rate: 98 P: 28 ID: [id number] QRS: 42 QRSD: 102 T: 21 QT: 351 QTc: 406 Interpretive Statements SINUS RHYTHM BASELINE ARTIFACT Electronically Signed On 05-15-2017 12:02:30 EDT by Rob Gomez MD
== END 2017-05-15 11:07 | disposition home or self-care (01) ==
LOC: INPPIK 00:12 → EMEROOPIK 00:12 → INPPIK 02:58
PROVIDERS: ADMIT Internal Medicine; ATTEND Internal Medicine